=== PATIENT | male | born 1965 | race Caucasian/White ===

== ENCOUNTER 2021-10-17 05:51 | Observation (INO) ==
[~2021-10-17 05:51] MED LIST: Polymyxin B Sulfate 500,000 UNIT, Sodium Chloride IRRigation 1,000 ML IR ONE
[2021-10-17] MEDS ORDERED: CeFAZolin Syr 2,000MG/20 ML 2,000 MG/20 ML SYRINGE IVPB ONE (06:19)
[2021-10-17] MEDS ORDERED: Ringers Solution, Lactated 1,000 ML IVC SCH (06:30)
[2021-10-17] MEDS ORDERED: *HR* Succinylcholine 200 MG/10 ML VIAL IVP ONE (06:59)
[2021-10-17] MEDS ORDERED: Lidocaine HCL 4 ML Topical Solution (Laryng-O-Jet Kit Sterile Pak) TP ONE (06:59)
[2021-10-17] MEDS ORDERED: *HR* Rocuronium Bromide 50 MG/5 ML VIAL ONE (06:59)
[2021-10-17] MEDS ORDERED: Lidocaine -MPF 2% 2 ML VIAL ONE (06:59)
[2021-10-17] MEDS ORDERED: Ondansetron 4 MG/2 ML VIAL ONE (06:59)
[2021-10-17] MEDS ORDERED: Famotidine 20 MG TABLET PO ONE (07:00)
[2021-10-17] MEDS ORDERED: Gabapentin 300 MG CAPSULE PO ONE (07:00)
[2021-10-17] MEDS ORDERED: tiZANidine 4 MG TABLET PO PRN (07:00)
[2021-10-17] MEDS ORDERED: *HR* OxyCODONE Immed Rel 5 MG TABLET PO ONE (07:00)
[2021-10-17] MEDS ORDERED: *HR* Midazolam HCl 2 MG/2 ML VIAL ONE (07:01)
[2021-10-17] MEDS ORDERED: *HR* FentaNYL (PF) 100 MCG/2 ML VIAL ONE (07:01)
[2021-10-17] MEDS ORDERED: *HR* Propofol 200 MG/20 ML VIAL IVP ONE (07:01)
[2021-10-17] MEDS ORDERED: *HR* Remifentanil 2 MG VIAL IVP ONE (07:07)
[2021-10-17] MEDS ORDERED: *HR* Phenylephrine 10 MG/ML VIAL ONE (07:12)
[2021-10-17] MEDS ORDERED: Vancomycin 1,000 MG VIAL ONE (07:24)
[2021-10-17] MEDS ORDERED: *HR* Vasopressin 20 UNIT/ML VIAL ONE (07:25)
[2021-10-17] MEDS ORDERED: EPHEDrine 50 MG/ML VIAL ONE (08:52)
[2021-10-17] MEDS ORDERED: Sugammadex Sodium 200 MG/2 ML VIAL IV ONE (09:14)
[2021-10-17] MEDS ORDERED: *HR* Remifentanil 1 MG VIAL IVP ONE ×2 (10:37→11:52)
[2021-10-17] MEDS ORDERED: *HR* HYDROMORPHONE 2 MG/ML VIAL ONE (12:07)
[2021-10-17] MEDS ORDERED: *HR* Labetalol 20 MG/4 ML SYRINGE IVP ONE (13:06)
[2021-10-17] MEDS: *HR* HYDROmorphone PF 0.5 MG/0.5 ML SYRINGE IVP PRN ×2 (13:27→13:37)
[2021-10-17] MEDS ORDERED: Naloxone 0.4 MG/ML INJ IVP PRN (14:56)
[2021-10-17] MEDS ORDERED: Acetaminophen 325 MG TABLET PO PRN (14:56)
[2021-10-17] MEDS ORDERED: Ondansetron 4 MG/2 ML VIAL IVP PRN (14:56)
[2021-10-17] MEDS: CeFAZolin 2 GM/120 ML BAG IVPB SCH (17:20)
[2021-10-17] MEDS: *HR* OxyCODONE Immed Rel 5 MG TABLET PO PRN ×2 (19:19→23:54)
[2021-10-17] MEDS: Ringers Solution, Lactated 1,000 ML IVC SCH (19:21)
[2021-10-17] MEDS: *HR* LORazepam 1 MG TABLET PO PRN (20:29)
[2021-10-17] MEDS: allopurinoL 100 MG TABLET PO SCH (20:30)
[2021-10-17] MEDS: *HR* HYDROcodone/Acet 5/325 mg TABLET PO PRN (20:30)
[2021-10-17] MEDS: Pregabalin 50 MG CAPSULE PO SCH (20:30)
[2021-10-17] MEDS: Lactobacillus 1 EACH CAP.SPRINK PO SCH (20:30)
[2021-10-18] MEDS: CeFAZolin 2 GM/120 ML BAG IVPB SCH (00:20)
[2021-10-18] MEDS: *HR* HYDROcodone/Acet 5/325 mg TABLET PO PRN ×2 (02:32→11:26)
[2021-10-18] MEDS: *HR* OxyCODONE Immed Rel 5 MG TABLET PO PRN ×5 (04:18→22:21)
[2021-10-18] MEDS: lisinopriL 10 MG TABLET PO SCH (08:03)
[2021-10-18] MEDS: Pregabalin 50 MG CAPSULE PO SCH ×2 (08:03→19:30)
[2021-10-18] MEDS: Lactobacillus 1 EACH CAP.SPRINK PO SCH ×2 (08:03→19:30)
[2021-10-18] MEDS: allopurinoL 100 MG TABLET PO SCH ×2 (08:03→19:30)
[2021-10-18] MEDS: Cholecalciferol (D-3) 1,000 UNIT (25MCG) TABLET PO SCH (08:03)
[2021-10-18] MEDS: *HR* LORazepam 1 MG TABLET PO PRN (11:28)
[2021-10-18 11:42] LABS: Basophils % 0.4 %; Eosinophils % 0.1 %; Hematocrit 41.7 % (37.5-50.1); Hemoglobin 13.7 g/dL (12.9-16.9); Immature Granulocytes % 0.4 % (0-4); Lymphocytes # 1.8 K/mcL (0.6-4.6); Mean Corpuscular HGB Conc 32.9 g/dL (31.6-35.5); Mean Corpuscular Hemoglobin 33.2 pg (28.0-33.3); Mean Platelet Volume 9.7 fL (9.4-12.4); Monocytes # 1.1 K/mcL (0.0-1.3); Monocytes % 9.4 %; Neutrophils # 8.4 K/mcL (1.6-8.9); Platelet Count 153 K/mcL (140-400); Red Blood Count 4.13 M/mcL (4.19-5.50); Red Cell Distribution Width 13.8 % (11.5-14.5); Segmented Neutrophils % 73.7 %; White Blood Count 11.4 K/mcL (4.3-11.1)
[2021-10-19] MEDS: *HR* OxyCODONE Immed Rel 5 MG TABLET PO PRN ×5 (02:57→22:29)
[2021-10-19] MEDS: Cholecalciferol (D-3) 1,000 UNIT (25MCG) TABLET PO SCH (07:43)
[2021-10-19] MEDS: lisinopriL 10 MG TABLET PO SCH (07:44)
[2021-10-19] MEDS: Lactobacillus 1 EACH CAP.SPRINK PO SCH ×2 (07:44→21:04)
[2021-10-19] MEDS: allopurinoL 100 MG TABLET PO SCH ×2 (07:44→21:05)
[2021-10-19] MEDS: Pregabalin 50 MG CAPSULE PO SCH ×2 (07:44→21:05)
[2021-10-19] MEDS: *HR* LORazepam 1 MG TABLET PO PRN (07:47)
[2021-10-19 10:58] LABS: Basophils # 0.1 K/mcL (0.0-0.2); Basophils % 0.5 %; Hematocrit 37.1 % (37.5-50.1); Hemoglobin 12.4 g/dL (12.9-16.9); Immature Granulocytes % 0.7 % (0-4); Lymphocytes # 1.6 K/mcL (0.6-4.6); Lymphocytes % 13.5 %; Mean Corpuscular HGB Conc 33.4 g/dL (31.6-35.5); Mean Corpuscular Hemoglobin 33.6 pg (28.0-33.3); Mean Corpuscular Volume 100.5 fL (83.0-100.0); Mean Platelet Volume 9.6 fL (9.4-12.4); Monocytes # 1.3 K/mcL (0.0-1.3); Monocytes % 10.7 %; Neutrophils # 8.8 K/mcL (1.6-8.9); Platelet Count 137 K/mcL (140-400); Red Blood Count 3.69 M/mcL (4.19-5.50); Red Cell Distribution Width 13.8 % (11.5-14.5); Segmented Neutrophils % 74.6 %; White Blood Count 11.8 K/mcL (4.3-11.1)
[2021-10-20] MEDS: *HR* OxyCODONE Immed Rel 5 MG TABLET PO PRN ×2 (04:02→09:01)
[2021-10-20] MEDS: lisinopriL 10 MG TABLET PO SCH (07:38)
[2021-10-20 08:36] LABS: Basophils # 0.1 K/mcL (0.0-0.2); Basophils % 0.6 %; Eosinophils % 0.2 %; Hematocrit 38.3 % (37.5-50.1); Hemoglobin 12.6 g/dL (12.9-16.9); Immature Granulocytes % 0.5 % (0-4); Lymphocytes # 2.1 K/mcL (0.6-4.6); Mean Corpuscular HGB Conc 32.9 g/dL (31.6-35.5); Mean Corpuscular Hemoglobin 32.9 pg (28.0-33.3); Mean Platelet Volume 9.6 fL (9.4-12.4); Monocytes # 0.9 K/mcL (0.0-1.3); Monocytes % 8.6 %; Neutrophils # 7.7 K/mcL (1.6-8.9); Platelet Count 153 K/mcL (140-400); Red Blood Count 3.83 M/mcL (4.19-5.50); Red Cell Distribution Width 13.3 % (11.5-14.5); Segmented Neutrophils % 71.1 %; White Blood Count 10.9 K/mcL (4.3-11.1)
[2021-10-20] MEDS: Cholecalciferol (D-3) 1,000 UNIT (25MCG) TABLET PO SCH (09:00)
[2021-10-20] MEDS: Lactobacillus 1 EACH CAP.SPRINK PO SCH (09:01)
[2021-10-20] MEDS: Pregabalin 50 MG CAPSULE PO SCH (09:01)
[2021-10-20] MEDS: allopurinoL 100 MG TABLET PO SCH (09:01)
[2021-10-20] MEDS: *HR* LORazepam 1 MG TABLET PO PRN (09:03)
[2021-10-20 10:28] VITALS: BP 128/69; PULSE 88; TEMP 98.3; O2SAT 97
[2021-10-20] MEDS: Ringers Solution, Lactated 1,000 ML IVC SCH ×3 (10:50→11:31)
== END 2021-10-20 12:04 | disposition home or self-care (01) ==
LOC: SDCAOSI 05:51 → 4WAOSI 05:51
PROVIDERS: ADMIT Orthopaedic Surgery Orthopaedic Surgery of the Spine; ATTEND Orthopaedic Surgery Orthopaedic Surgery of the Spine